=== PATIENT | female | born 1990 | race Caucasian/White ===

== ENCOUNTER → 2020-09-08 10:13 | Outpatient (BNVA) | payer OTHER, MEDICAID, SELFPAY | PROVIDERS: Visit Provider Internal Medicine | DX: M06.9 Rheumatoid arthritis, unspecified (principal); Z79.899 Other long term (current) drug therapy; Z11.1 Encounter for screening for respiratory tuberculosis; Z11.59 Encounter for screening for other viral diseases | CPT/HCPCS: 36415; 99204 ==

== ENCOUNTER 2020-09-08 11:03 | Outpatient (CLI) | payer OTHER, MEDICAID, SELFPAY ==
--- NOTE | 2020-09-08 11:12 | XR_ITS ---
WS: [id number] Left hand, 2 views, 09/08/2020 Clinical Data: Z79.899 - Other longterm (current) drug therapy Comparison: None. Findings: No fractures or dislocations are seen. The soft tissues are unremarkable. The joint spaces are normal No periarticular demineralization or calcifications are seen. There is osteoarthritis between the art iculation of the distal radius and ulna with the proximal role of carpal bones. XR/XR hand LT 2V [id number] Impression: 1. Negative left hand. 2. Osteoarthritic narrowing of the radiocarpal articulation with the proximal r ow of carpal bones.
--- NOTE | 2020-09-08 11:12 | XR_ITS ---
WS: [id number] Right hand, 2 views, 09/08/2020 Clinical Data: Z79.899 - Other correction (current) drug therapy Comparison: None. Findings: No fractures or dislocations are seen. The soft tissues are unremarkable. The joint space s are normal No periarticular demineralization or calcifications are seen. There is osteoarthritic change between the articulation of the distal radius and ulna articulating with the proximal row of carpal bones. XR/XR hand RT 2V [id number] Impression: 1. Negative right hand. 2. Osteoarthritis between the radius and ulna as they articulate with the proxi mal row of carpal bones.
== END 2020-09-08 11:04 | disposition home or self-care (01) ==
LOC: RADWPI 11:11
PROVIDERS: Visit Provider Internal Medicine
DX: Z79.899 Other long term (current) drug therapy (principal); M19.041 Primary osteoarthritis, right hand
CPT/HCPCS: 73120; 80053; 85025; 86431; 86480; 86704; 86803; 87340

== ENCOUNTER 2020-10-14 08:53 | Outpatient (CLI) | payer OTHER, MEDICAID, SELFPAY ==
[2020-10-14] MEDS: diphenhydrAMINE 25 mg Capsule PO (09:23)
[2020-10-14] MEDS: acetaminophen 325 mg Tablet 650 MG PO (09:24)
[2020-10-14] MEDS: rituximab 1,000 MG in sodium chloride 0.9% 250 ML, primary tubing onc 1 EACH 70 MG IV (09:39)
[2020-10-14 09:55] VITALS: BP 124/83; PULSE 80; RESP 16; TEMP 36.5; O2SAT 98
[2020-10-14 09:56] VITALS: BMI 28.6
--- NOTE | 2020-10-14 10:56 | PC.NURSE ---
Infusion started at 0939. Increasing rate every 30 min. Pt resting with eyes closed.
[2020-10-14 14:47] VITALS: BP 125/76; PULSE 93; RESP 16; O2SAT 98
== END 2020-10-14 08:54 | disposition home or self-care (01) ==
LOC: RHEOACUTE 08:54
PROVIDERS: Visit Provider Internal Medicine
DX: M06.09 Rheumatoid arthritis without rheumatoid factor, multiple sites (principal)
CPT/HCPCS: 96365; 96366; 96375; J2930; J7050; J9312

== ENCOUNTER 2020-10-28 09:10 | Outpatient (CLI) | payer OTHER, MEDICAID, SELFPAY ==
[2020-10-28] MEDS: acetaminophen 325 mg Tablet 650 MG PO (10:25)
[2020-10-28] MEDS: diphenhydrAMINE 25 mg Capsule PO (10:25)
[2020-10-28] MEDS: rituximab 1,000 MG in sodium chloride 0.9% 250 ML, primary tubing onc 1 EACH 70 MG IV (10:32)
--- NOTE | 2020-12-07 08:47 | PC.NURSE ---
Due to an administrative issue we are doing a late entry for clarity of the medical record. The infusion case was routine and the approximate stop time was 1532 based upon the start time of 1032.
== END 2020-10-28 09:11 | disposition home or self-care (01) ==
LOC: ONCMED 09:12
PROVIDERS: Visit Provider Internal Medicine Medical Oncology
DX: M06.9 Rheumatoid arthritis, unspecified (principal)
CPT/HCPCS: 96365; 96366; 96375; J2930; J7050; J9312

== ENCOUNTER → 2021-01-24 14:31 | Outpatient (BNVA) | payer OTHER, MEDICAID, SELFPAY | PROVIDERS: Visit Provider Internal Medicine | DX: M06.9 Rheumatoid arthritis, unspecified (principal); M79.89 Other specified soft tissue disorders; Z79.899 Other long term (current) drug therapy; R76.8 Other specified abnormal immunological findings in serum | CPT/HCPCS: 80053; 84443; 85025; 99214 ==

== ENCOUNTER 2021-02-17 07:57 | Outpatient (CLI) | payer OTHER, MEDICAID, SELFPAY ==
[2021-02-17 08:30] VITALS: BP 122/71; PULSE 97; RESP 16; TEMP 36.7; O2SAT 99
[2021-02-17] MEDS: acetaminophen 325 mg Tablet 650 MG PO (08:53)
[2021-02-17] MEDS: sodium chloride 0.9% 250 ML 75 ML IV (08:55)
[2021-02-17] MEDS: diphenhydrAMINE 50 mg/mL SDV 1mL 25 MG IVP (08:56)
[2021-02-17 09:03] LABS: Basophils # 0.1 10^3/uL (0.0-0.1); Basophils % 1.2 %; Eosinophils # 0.3 10^3/uL (0.0-0.8); Eosinophils % 4.3 %; Hematocrit 38.6 % (37.0-47.0); Hemoglobin 12.4 g/dL (11.5-15.3); Lymphocytes # 1.1 10^3/uL (0.8-4.8); Lymphocytes % 15.4 %; Mean Corpuscular HGB Conc 32.1 g/dL (30.0-36.0); Mean Corpuscular Hemoglobin 27.3 pg (28.0-34.0); Mean Corpuscular Volume 84.8 fL (81-99); Mean Platelet Volume 11.5 fL (7.4-10.4); Monocytes # 0.3 10^3/uL (0.2-0.9); Monocytes % 4.5 %; Neutrophils # 5.16 10^3/uL (1.8-7.7); Neutrophils % 74.3 %; Nucleated Red Blood Cells % 0 %; Platelet Count 324 10^3/cmm (130-400); Red Blood Count 4.55 10^6/uL (4.1-5.3); Red Cell Distribution Width 14.5 % (12.1-15.1); White Blood Count 6.9 10^3/uL (4.0-10.0)
[2021-02-17] MEDS: rituximab 1,000 MG in sodium chloride 0.9% 250 ML, primary tubing onc 1 EACH 25 MG IV (09:07)
[2021-02-17 09:15] LABS: Alanine Aminotransferase 13 U/L (0-33); Albumin Level 4.3 g/dL (3.5-5.2); Alkaline Phosphatase 80 IU/L (35-105); Anion Gap 12.6 (5-19); Aspartate Amino Transferase 19 U/L (0-32); Blood Urea Nitrogen 10 mg/dL (6-20); C Reactive Protein 5.9 mg/L (0.0-4.9); Calcium 8.6 mg/dL (8.5-10.5); Carbon Dioxide 24 mmol/L (22-29); Chloride 103 mmol/L (98-107); Globulin 3.3 g/dL (1.3-4.6); Glomerular Filtration Rate 115.9 mL/min (90-130); Glucose 114 mg/dL (65-115); Osmolality Calculated 282 mOsm/kg (285-295); Potassium 3.6 mmol/L (3.5-5.1); Sodium 136 mmol/L (136-145); Total Bilirubin 0.4 mg/dL (0.15-1.2); Total Protein 7.6 g/dL (6.6-8.7)
[2021-02-17 09:38] VITALS: BP 106/70; PULSE 57; RESP 16; TEMP 36.5; O2SAT 99
[2021-02-17 10:08] VITALS: BP 106/61; PULSE 67; RESP 16; TEMP 36.4; O2SAT 99
[2021-02-17 10:38] VITALS: BP 102/68; PULSE 60; RESP 16; TEMP 36.5; O2SAT 99
[2021-02-17] MEDS: sodium chloride 0.9% 250 ML 50 ML IV (11:59)
[2021-02-17 13:30] VITALS: BP 122/80; PULSE 82; RESP 16; TEMP 36.8; O2SAT 99
== END 2021-02-17 07:58 | disposition home or self-care (01) ==
PROVIDERS: Visit Provider Internal Medicine
DX: M06.9 Rheumatoid arthritis, unspecified (principal)
CPT/HCPCS: 80053; 85025; 86140; 96365; 96366; 96375; J1200; J2930; J7050; J9312

== ENCOUNTER 2021-03-03 06:18 | Outpatient (CLI) | payer OTHER, MEDICAID, SELFPAY ==
[2021-03-03 08:05] VITALS: BP 118/74; PULSE 67; RESP 18; TEMP 36.1; O2SAT 99
[2021-03-03] MEDS: acetaminophen 325 mg Tablet 650 MG PO (08:31)
[2021-03-03] MEDS: sodium chloride 0.9% 250 ML 75 ML IV (08:32)
[2021-03-03] MEDS: diphenhydrAMINE 50 mg/mL SDV 1mL 25 MG IVP (08:35)
[2021-03-03] MEDS: rituximab 1,000 MG in sodium chloride 0.9% 250 ML, primary tubing onc 1 EACH 35 MG IV (08:38)
[2021-03-03 11:34] VITALS: BP 118/79; PULSE 72; RESP 18; TEMP 36.5; O2SAT 98
== END 2021-03-03 06:19 | disposition home or self-care (01) ==
LOC: ONCMED 06:21
PROVIDERS: Visit Provider Internal Medicine
DX: M06.9 Rheumatoid arthritis, unspecified (principal)
CPT/HCPCS: 96365; 96366; 96375; J1200; J2930; J7050; J9312

== ENCOUNTER → 2021-06-17 09:00 | Outpatient (BNVA) | payer OTHER, MEDICAID, SELFPAY | PROVIDERS: Visit Provider Internal Medicine | DX: M06.9 Rheumatoid arthritis, unspecified (principal); M79.89 Other specified soft tissue disorders; Z79.899 Other long term (current) drug therapy; R76.8 Other specified abnormal immunological findings in serum; Z71.89 Other specified counseling | CPT/HCPCS: 99214 ==

== ENCOUNTER 2021-07-06 10:08 | Outpatient (CLI) | payer OTHER, MEDICAID, SELFPAY ==
[2021-07-06 10:23] VITALS: BP 124/65; PULSE 81; RESP 18; TEMP 36.7; O2SAT 97
[2021-07-06] MEDS: sodium chloride 0.9% 250 ML 75 ML IV (11:06)
[2021-07-06] MEDS: acetaminophen 325 mg Tablet 650 MG PO (11:07)
[2021-07-06] MEDS: diphenhydrAMINE 50 mg/mL SDV 1mL 25 MG IV (11:08)
[2021-07-06] MEDS: rituximab 1,000 MG in sodium chloride 0.9% 250 ML, primary tubing onc 1 EACH 90 MG IV (11:16)
[2021-07-06 11:17] LABS: Basophils # 0.1 10^3/uL (0.0-0.1); Basophils % 0.8 %; Eosinophils # 0.1 10^3/uL (0.0-0.8); Eosinophils % 2.4 %; Hematocrit 40.4 % (37.0-47.0); Hemoglobin 13.1 g/dL (11.5-15.3); Lymphocytes % 16.8 %; Mean Corpuscular HGB Conc 32.4 g/dL (30.0-36.0); Mean Corpuscular Hemoglobin 27.5 pg (28.0-34.0); Mean Corpuscular Volume 84.7 fl (81-99); Monocytes # 0.3 10^3/uL (0.2-0.9); Monocytes % 5.4 %; Neutrophils # 4.39 10^3/uL (1.8-7.7); Neutrophils % 74.3 %; Nucleated Red Blood Cells % 0 %; Platelet Count 310 10^3/cmm (130-400); Red Blood Count 4.77 10^6/uL (4.1-5.3); Red Cell Distribution Width 14.6 % (12.1-15.1); White Blood Count 5.9 10^3/uL (4.0-10.0)
[2021-07-06 11:46] VITALS: BP 98/67; PULSE 58; RESP 18; TEMP 36.2; O2SAT 98
[2021-07-06 11:48] LABS: Alanine Aminotransferase 12 U/L (0-33); Albumin Level 4.3 g/dL (3.5-5.2); Alkaline Phosphatase 70 IU/L (35-105); Anion Gap 13.9 (5-19); Aspartate Amino Transferase 17 U/L (0-32); Blood Urea Nitrogen 13 mg/dL (6-20); C Reactive Protein 5.5 mg/L (0.0-4.9); Calcium 8.9 mg/dL (8.5-10.5); Carbon Dioxide 23 mmol/L (22-29); Chloride 101 mmol/L (98-107); Globulin 3.3 g/dL (1.3-4.6); Glomerular Filtration Rate 142.1 mL/min (90-130); Glucose 102 mg/dL (65-115); Osmolality Calculated 278 mOsm/kg (285-295); Potassium 3.9 mmol/L (3.5-5.1); Sodium 134 mmol/L (136-145); Total Bilirubin 0.3 mg/dL (0.15-1.2); Total Protein 7.6 g/dL (6.6-8.7)
[2021-07-06 12:13] VITALS: BP 101/67; PULSE 59; RESP 18; TEMP 36.3; O2SAT 99
[2021-07-06 12:34] VITALS: BP 110/74; PULSE 60; RESP 18; TEMP 36.1; O2SAT 99
[2021-07-06 13:13] VITALS: BP 109/71; PULSE 75; RESP 18; TEMP 36.1; O2SAT 99
== END 2021-07-06 10:09 | disposition home or self-care (01) ==
LOC: ONCMED 10:11
PROVIDERS: Referring Provider Internal Medicine; Visit Provider Internal Medicine
DX: M06.9 Rheumatoid arthritis, unspecified (principal)
CPT/HCPCS: 80053; 85025; 86140; 96365; 96366; 96375; J1200; J2930; J7050; J9312

== ENCOUNTER 2021-09-22 11:02 | Outpatient (CLI) | payer OTHER, MEDICAID, SELFPAY ==
--- NOTE | 2021-09-22 11:07 | XR_ITS ---
WS: [id number] XR elbow RT min 3V* [id number] REASON FOR EXAM: M06.9 - Rheumatoid arthritis, unspecified FINDINGS: No fracture or dislocation. No focal bone lesion. Significant narrowing of the radiohumeral and ulnohumeral joint spaces of the right elbow. Marginal o steophytes. Significant deformity of the radial head compatible with old healed impaction fracture. Possible loose body in the anterior elbow joint. XR/XR elbow RT min 3V* [id number] IMPRESSION: Posttraumatic osteoarthritis of the right elbow.
--- NOTE | 2021-09-22 11:07 | XR_ITS ---
WS: [id number] LEFT ELBOW: 3 VIEW(S) TECHNIQUE: AP, oblique and lateral. HISTORY: M06.9 - Rheumatoid arthritis, unspecified COMPARISON: None available. No acute fractures or dislocation. Diffuse joint space narrowing with small osteophytes. Circumferential osteophytes around the radial h ead. No fracture or dislocation. No erosions. There is a very small joint effusion anteriorly. XR/XR elbow LT min 3V* [id number] IMPRESSION: 1. No erosions or subluxation. 2. Narrowing of the medial and lateral joint compartments without significant osteophytosis. This can be seen with rheumatoid arthritis. 3. Very small anterior joint effusion. 4. Osteophytic ridging around the radial head.
--- NOTE | 2021-09-22 11:07 | XR_ITS ---
WS: [id number] LATERAL CERVICAL SPINE: 3 view. Lateral radiographs are performed in upright neutral, flexion and extension to the patient's toleranc e. HISTORY: M06.9 - Rheumatoid arthritis, unspecified COMPARISON: None available. Reversal of the normal cervical lordosis centered at C5. The disc spaces are preserved. No fractures. Normal interspinous distance. No prevertebral soft tissue swelling or edema. Flexion and extension n o instability. XR/XR cervical spine fl/ex [id number] IMPRESSION: 1. Reversal of normal cervical lordosis centered at C5. 2. No cervical spine instability.
[2021-09-22 11:37] LABS: Basophils # 0.1 10^3/uL (0.0-0.1); Basophils % 1.2 %; Eosinophils # 0.1 10^3/uL (0.0-0.8); Eosinophils % 1.6 %; Hematocrit 39.5 % (37.0-47.0); Hemoglobin 12.7 g/dL (11.5-15.3); Lymphocytes # 1.5 10^3/uL (0.8-4.8); Lymphocytes % 20.1 %; Mean Corpuscular HGB Conc 32.2 g/dL (30.0-36.0); Mean Corpuscular Hemoglobin 27.7 pg (28.0-34.0); Mean Corpuscular Volume 86.2 fl (81-99); Mean Platelet Volume 11.4 fL (7.4-10.4); Monocytes # 0.8 10^3/uL (0.2-0.9); Monocytes % 11.2 %; Neutrophils # 4.92 10^3/uL (1.8-7.7); Neutrophils % 65.6 %; Nucleated Red Blood Cells % 0 %; Platelet Count 316 10^3/cmm (130-400); Red Blood Count 4.58 10^6/uL (4.1-5.3); White Blood Count 7.5 10^3/uL (4.0-10.0)
[2021-09-22 12:15] LABS: Alanine Aminotransferase 12 U/L (0-33); Albumin Level 4.5 g/dL (3.5-5.2); Alkaline Phosphatase 69 IU/L (35-105); Anion Gap 18.3 (5-19); Aspartate Amino Transferase 14 U/L (0-32); Blood Urea Nitrogen 12 mg/dL (6-20); Calcium 8.7 mg/dL (8.5-10.5); Carbon Dioxide 21 mmol/L (22-29); Chloride 103 mmol/L (98-107); Globulin 2.9 g/dL (1.3-4.6); Glomerular Filtration Rate 115.1 mL/min (90-130); Glucose 95 mg/dL (65-115); Immunoglobulin IGA 247 mg/dL (70-400); Immunoglobulin IGG 1434 mg/dL (700-1600); Immunoglobulin IGM 78 mg/dL (40-230); Osmolality Calculated 286 mOsm/kg (285-295); Potassium 4.3 mmol/L (3.5-5.1); Sodium 138 mmol/L (136-145); Total Bilirubin 0.3 mg/dL (0.15-1.2); Total Protein 7.4 g/dL (6.6-8.7)
[2021-09-22 12:28] LABS: Erythrocyte Sedimentation Rate 18 mm/hr (0-15)
== END 2021-09-22 11:03 | disposition home or self-care (01) ==
LOC: LAB 11:04
PROVIDERS: Visit Provider Internal Medicine
DX: M06.9 Rheumatoid arthritis, unspecified (principal); M79.89 Other specified soft tissue disorders; R76.8 Other specified abnormal immunological findings in serum; Z79.899 Other long term (current) drug therapy; M25.422 Effusion, left elbow; M19.021 Primary osteoarthritis, right elbow
CPT/HCPCS: 36415; 72040; 73080; 80053; 82784; 85025; 85651; 86140

== ENCOUNTER 2021-10-26 10:06 | Outpatient (CLI) | payer OTHER, MEDICAID, SELFPAY ==
[2021-10-26 10:20] VITALS: BP 123/79; PULSE 82; RESP 16; TEMP 36.8; O2SAT 98
[2021-10-26] MEDS: sodium chloride 0.9% 250 ML 75 ML IV (10:50)
[2021-10-26] MEDS: acetaminophen 325 mg Tablet 650 MG PO (10:51)
[2021-10-26] MEDS: diphenhydrAMINE 50 mg/mL SDV 1mL 25 MG IV (10:52)
[2021-10-26] MEDS: rituximab 1,000 MG in sodium chloride 0.9% 250 ML, primary tubing onc 1 EACH 90 MG IV (11:07)
[2021-10-26 11:10] LABS: Basophils % 0.7 %; Eosinophils # 0.1 10^3/uL (0.0-0.8); Eosinophils % 2.3 %; Hematocrit 38.3 % (37.0-47.0); Hemoglobin 12.3 g/dL (11.5-15.3); Lymphocytes # 0.8 10^3/uL (0.8-4.8); Lymphocytes % 18.8 %; Mean Corpuscular HGB Conc 32.1 g/dL (30.0-36.0); Mean Corpuscular Hemoglobin 27.8 pg (28.0-34.0); Mean Corpuscular Volume 86.5 fl (81-99); Mean Platelet Volume 11.4 fL (7.4-10.4); Monocytes # 0.6 10^3/uL (0.2-0.9); Monocytes % 13.4 %; Neutrophils # 2.75 10^3/uL (1.8-7.7); Neutrophils % 64.6 %; Nucleated Red Blood Cells % 0 %; Platelet Count 320 10^3/cmm (130-400); Red Blood Count 4.43 10^6/uL (4.1-5.3); Red Cell Distribution Width 13.5 % (12.1-15.1); White Blood Count 4.3 10^3/uL (4.0-10.0)
[2021-10-26 11:33] VITALS: BP 97/63; PULSE 61; RESP 16; TEMP 36.9; O2SAT 99
[2021-10-26 11:34] LABS: Alanine Aminotransferase 14 U/L (0-33); Alkaline Phosphatase 77 IU/L (35-105); Aspartate Amino Transferase 17 U/L (0-32); Blood Urea Nitrogen 10 mg/dL (6-20); C Reactive Protein 11.5 mg/L (0.0-4.9); Calcium 8.4 mg/dL (8.5-10.5); Carbon Dioxide 21 mmol/L (22-29); Chloride 103 mmol/L (98-107); Globulin 2.7 g/dL (1.3-4.6); Glomerular Filtration Rate 183.8 mL/min (90-130); Glucose 86 mg/dL (65-115); Osmolality Calculated 278 mOsm/kg (285-295); Sodium 135 mmol/L (136-145); Total Bilirubin 0.3 mg/dL (0.15-1.2); Total Protein 6.7 g/dL (6.6-8.7)
[2021-10-26 12:05] VITALS: BP 107/70; PULSE 68; RESP 16; TEMP 36.8; O2SAT 100
[2021-10-26 13:04] VITALS: BP 111/70; PULSE 67; RESP 16; TEMP 36.9; O2SAT 100
== END 2021-10-26 10:07 | disposition home or self-care (01) ==
LOC: ONCMED 10:14
PROVIDERS: Referring Provider Internal Medicine; Visit Provider Internal Medicine
DX: M06.9 Rheumatoid arthritis, unspecified (principal)
CPT/HCPCS: 80053; 85025; 86140; 96365; 96366; 96375; J1200; J2930; J7050; J9312

== ENCOUNTER 2022-02-15 10:03 | Outpatient (CLI) | payer OTHER, MEDICAID, SELFPAY ==
[2022-02-15 10:12] VITALS: BP 115/85; PULSE 76; RESP 18; TEMP 36.8; O2SAT 98
[2022-02-15] MEDS: acetaminophen 325 mg Tablet 650 MG PO (10:39)
[2022-02-15] MEDS: sodium chloride 0.9% 250 ML 50 ML IV (10:42)
[2022-02-15] MEDS: diphenhydrAMINE 50 mg/mL SDV 1mL 25 MG IVP (10:43)
[2022-02-15 10:45] LABS: Basophils # 0.1 10^3/uL (0.0-0.1); Eosinophils # 0.2 10^3/uL (0.0-0.8); Eosinophils % 3.8 %; Hematocrit 38.7 % (37.0-47.0); Hemoglobin 12.5 g/dL (11.5-15.3); Lymphocytes # 1.1 10^3/uL (0.8-4.8); Lymphocytes % 17.9 %; Mean Corpuscular HGB Conc 32.3 g/dL (30.0-36.0); Mean Corpuscular Hemoglobin 27.4 pg (28.0-34.0); Mean Corpuscular Volume 84.9 fl (81-99); Mean Platelet Volume 11.5 fL (7.4-10.4); Monocytes # 0.4 10^3/uL (0.2-0.9); Monocytes % 7.4 %; Neutrophils # 4.16 10^3/uL (1.8-7.7); Neutrophils % 69.6 %; Nucleated Red Blood Cells % 0 %; Platelet Count 300 10^3/cmm (130-400); Red Blood Count 4.56 10^6/uL (4.1-5.3); Red Cell Distribution Width 13.9 % (12.1-15.1)
[2022-02-15] MEDS: rituximab 1,000 MG in sodium chloride 0.9% 250 ML, primary tubing onc 1 EACH 35 MG IV (10:55)
[2022-02-15 11:06] LABS: Alanine Aminotransferase 14 U/L (0-33); Albumin Level 4.1 g/dL (3.5-5.2); Alkaline Phosphatase 72 IU/L (35-105); Anion Gap 12.9 (5-19); Aspartate Amino Transferase 17 U/L (0-32); Blood Urea Nitrogen 6 mg/dL (6-20); C Reactive Protein 6.7 mg/L (0.0-4.9); Calcium 8.8 mg/dL (8.5-10.5); Carbon Dioxide 22 mmol/L (22-29); Chloride 103 mmol/L (98-107); Globulin 3.3 g/dL (1.3-4.6); Glomerular Filtration Rate 142.1 mL/min (90-130); Glucose 92 mg/dL (65-115); Osmolality Calculated 275 mOsm/kg (285-295); Potassium 3.9 mmol/L (3.5-5.1); Sodium 134 mmol/L (136-145); Total Bilirubin 0.3 mg/dL (0.15-1.2); Total Protein 7.4 g/dL (6.6-8.7)
[2022-02-15 11:21] VITALS: BP 106/73; PULSE 60; RESP 18; TEMP 36.4; O2SAT 98
[2022-02-15 12:24] VITALS: BP 100/69; PULSE 73; RESP 18; TEMP 36.8; O2SAT 98
[2022-02-15 14:24] VITALS: BP 116/79; PULSE 86; RESP 18; TEMP 36.8; O2SAT 98
== END 2022-02-15 10:04 | disposition home or self-care (01) ==
PROVIDERS: Referring Provider Internal Medicine; Visit Provider Internal Medicine
DX: M06.9 Rheumatoid arthritis, unspecified (principal); Z79.899 Other long term (current) drug therapy
CPT/HCPCS: 80053; 85025; 86140; 96365; 96366; 96375; J1200; J2930; J7050; J9312

== ENCOUNTER → 2022-06-28 10:04 | Outpatient (BNVA) | payer OTHER, MEDICAID, SELFPAY | PROVIDERS: Visit Provider Internal Medicine | DX: R76.8 Other specified abnormal immunological findings in serum (principal); M25.529 Pain in unspecified elbow; M79.89 Other specified soft tissue disorders; M06.9 Rheumatoid arthritis, unspecified; Z79.899 Other long term (current) drug therapy | CPT/HCPCS: 80053; 82784; 84439; 84443; 85025; 85651; 86140 ==

== ENCOUNTER 2022-07-27 08:01 | Outpatient (CLI) | payer OTHER, MEDICAID, SELFPAY ==
[2022-07-27 08:10] VITALS: BP 118/70; PULSE 93; RESP 18; TEMP 36.1; O2SAT 97
[2022-07-27 08:37] LABS: Eosinophils # 0.3 10^3/uL (0.0-0.8); Eosinophils % 7.2 %; Hematocrit 37.9 % (37.0-47.0); Hemoglobin 11.9 g/dL (11.5-15.3); Lymphocytes # 1.1 10^3/uL (0.8-4.8); Lymphocytes % 28.1 %; Mean Corpuscular HGB Conc 31.4 g/dL (30.0-36.0); Mean Corpuscular Hemoglobin 26.1 pg (28.0-34.0); Mean Corpuscular Volume 83.1 fl (81-99); Mean Platelet Volume 11.2 fL (7.4-10.4); Monocytes # 0.2 10^3/uL (0.2-0.9); Monocytes % 5.7 %; Neutrophils # 2.34 10^3/uL (1.8-7.7); Neutrophils % 57.8 %; Nucleated Red Blood Cells % 0 %; Platelet Count 324 10^3/cmm (130-400); Red Blood Count 4.56 10^6/uL (4.1-5.3); Red Cell Distribution Width 15.1 % (12.1-15.1); White Blood Count 4.1 10^3/uL (4.0-10.0)
[2022-07-27] MEDS: sodium chloride 0.9% 250 ML 50 ML IV (08:47)
[2022-07-27] MEDS: acetaminophen 325 mg Tablet 650 MG PO (08:48)
[2022-07-27] MEDS: diphenhydrAMINE 50 mg/mL SDV 1mL 25 MG IVP (08:49)
[2022-07-27 09:01] LABS: Alanine Aminotransferase 22 U/L (0-33); Albumin Level 4.2 g/dL (3.5-5.2); Alkaline Phosphatase 76 U/L (35-105); Anion Gap 14.6 (5-19); Aspartate Amino Transferase 24 U/L (0-32); Blood Urea Nitrogen 12 mg/dL (6-20); C Reactive Protein 4.1 mg/L (0.0-4.9); Carbon Dioxide 23 mmol/L (22-29); Chloride 103 mmol/L (98-107); Globulin 3.1 g/dL (1.3-4.6); Glomerular Filtration Rate 114.4 mL/min (90-130); Glucose 116 mg/dL (65-115); Osmolality Calculated 285 mOsm/kg (285-295); Potassium 3.6 mmol/L (3.5-5.1); Sodium 137 mmol/L (136-145); Total Bilirubin 0.5 mg/dL (0.15-1.2); Total Protein 7.3 g/dL (6.6-8.7)
[2022-07-27] MEDS: rituximab 1,000 MG in sodium chloride 0.9% 250 ML, primary tubing onc 1 EACH 37.5 MG IV (09:05)
[2022-07-27 09:29] VITALS: BP 138/69; PULSE 57; RESP 16; TEMP 36.4; O2SAT 95
[2022-07-27 10:05] VITALS: BP 99/63; PULSE 61; RESP 18; TEMP 36.1; O2SAT 98
[2022-07-27 10:35] VITALS: BP 103/61; PULSE 75; RESP 18; TEMP 36.1; O2SAT 98
[2022-07-27 12:21] VITALS: BP 114/68; PULSE 87; RESP 18; TEMP 36.2; O2SAT 100
== END 2022-07-27 08:02 | disposition home or self-care (01) ==
PROVIDERS: Visit Provider Internal Medicine
DX: M06.9 Rheumatoid arthritis, unspecified (principal); Z79.899 Other long term (current) drug therapy
CPT/HCPCS: 80053; 85025; 86140; 96365; 96366; 96375; J1200; J2930; J7050; J9312

== ENCOUNTER 2022-12-06 10:30 | Oncology outpatient (recurring) (ONCR) | payer OTHER, MEDICAID, SELFPAY ==
[2022-12-06 10:42] VITALS: BP 115/84; PULSE 96; RESP 18; TEMP 36.8; O2SAT 97
[2022-12-06 11:04] LABS: Basophils # 0.1 10^3/uL (0.0-0.1); Basophils % 1.2 %; Eosinophils # 0.4 10^3/uL (0.0-0.8); Eosinophils % 7.1 %; Lymphocytes # 1.2 10^3/uL (0.8-4.8); Lymphocytes % 19.8 %; Mean Corpuscular HGB Conc 31.6 g/dL (30.0-36.0); Mean Corpuscular Hemoglobin 26.1 pg (28.0-34.0); Mean Corpuscular Volume 82.8 fl (81-99); Monocytes # 0.3 10^3/uL (0.2-0.9); Monocytes % 5.5 %; Neutrophils # 3.85 10^3/uL (1.8-7.7); Neutrophils % 66.2 %; Nucleated Red Blood Cells % 0 %; Platelet Count 353 10^3/cmm (130-400); Red Blood Count 4.59 10^6/uL (4.1-5.3); Red Cell Distribution Width 15.6 % (12.1-15.1); White Blood Count 5.8 10^3/uL (4.0-10.0)
[2022-12-06] MEDS: sodium chloride 0.9% 250 ML 50 ML IV (11:18)
[2022-12-06] MEDS: acetaminophen 325 mg Tablet 650 MG PO (11:19)
[2022-12-06] MEDS: diphenhydrAMINE 50 mg/mL SDV 1mL 25 MG IVP (11:20)
[2022-12-06 11:27] LABS: Alanine Aminotransferase 19 U/L (0-33); Albumin Level 4.4 g/dL (3.5-5.2); Alkaline Phosphatase 82 U/L (35-105); Anion Gap 15.7 (5-19); Aspartate Amino Transferase 24 U/L (0-32); Blood Urea Nitrogen 14 mg/dL (6-20); C Reactive Protein 7.5 mg/L (0.0-4.9); Calcium 9.1 mg/dL (8.5-10.5); Carbon Dioxide 22 mmol/L (22-29); Chloride 104 mmol/L (98-107); Globulin 2.8 g/dL (1.3-4.6); Glomerular Filtration Rate 114.4 mL/min (90-130); Glucose 112 mg/dL (65-115); Osmolality Calculated 287 mOsm/kg (285-295); Potassium 3.7 mmol/L (3.5-5.1); Sodium 138 mmol/L (136-145); Total Bilirubin 0.4 mg/dL (0.15-1.2); Total Protein 7.2 g/dL (6.6-8.7)
[2022-12-06] MEDS: rituximab 1,000 MG in sodium chloride 0.9% 250 ML, primary tubing onc 1 EACH 37.5 MG IV (11:32)
[2022-12-06 12:03] VITALS: BP 112/79; PULSE 65; RESP 16; TEMP 36.4; O2SAT 91
[2022-12-06 12:35] VITALS: BP 117/76; PULSE 72; RESP 16; TEMP 36.4; O2SAT 95
[2022-12-06 13:24] VITALS: BP 103/69; PULSE 68; RESP 16; TEMP 36.3; O2SAT 95
[2022-12-06 14:53] VITALS: BP 105/69; PULSE 83; RESP 16; TEMP 36.6; O2SAT 98
== END 2023-01-05 23:59 | disposition home or self-care (01) ==
PROVIDERS: PCP Nurse Practitioner Family; Visit Provider Internal Medicine
DX: M06.9 Rheumatoid arthritis, unspecified (principal); Z51.12 Encounter for antineoplastic immunotherapy; Z79.899 Other long term (current) drug therapy
CPT/HCPCS: 80053; 85025; 86140; 96375; 96413; 96415; J1200; J2930; J7050; J9312

== ENCOUNTER → 2023-03-08 08:42 | Outpatient (BNVA) | payer OTHER, MEDICAID, SELFPAY | PROVIDERS: PCP Nurse Practitioner Family; Referring Provider Internal Medicine; Visit Provider Internal Medicine | DX: E03.8 Other specified hypothyroidism (principal); R63.5 Abnormal weight gain | CPT/HCPCS: 36415; 84439; 84443; 86376; 86800 ==

== ENCOUNTER → 2023-03-15 09:56 | Outpatient (BNVA) | payer OTHER, MEDICAID, SELFPAY | PROVIDERS: PCP Nurse Practitioner Family; Referring Provider Internal Medicine; Visit Provider Student in an Organized Health Care Education/Training Program | DX: M06.842 Other specified rheumatoid arthritis, left hand (principal); R22.32 Localized swelling, mass and lump, left upper limb | CPT/HCPCS: 73130 ==

== ENCOUNTER 2023-03-29 07:47 | Outpatient (CLI) | payer OTHER, MEDICAID, SELFPAY ==
--- NOTE | 2023-03-29 08:00 | MR_ITS ---
WS: [id number] MRI LEFT HAND without CONTRAST. COMPARISON: Radiograph 03/15/2023 Multiplanar, multisequence imaging is performed without contrast. History: Rheumatoid arthritis. LEFT index finger mass. Multilobulated soft tissue mass associated with the flexor tendon sheath of the second finger. Mass i s of mildly increased T2 signal and decreased signal in the T1 sequences. This mass extends over evelia th of 2.4 cm and transversely by 2.0 cm. Mass is centered near the second PIP joint but extends along the dorsal surface of the finger distally. This is not a simple cyst. There are several loculated co mponents. Long segment contact on the flexor tendon. No bone erosion is identified. No signal abnormality within the remaining fingers are soft tissues. MR/MR hand LT wo con* [id number] IMPRESSION: 1. Lobulated soft tissue mass closely associated with the flexor tendon sheath of the second finger. Mass measures 2.4 x 2.0 cm. This is not a simple cyst. H igh likelihood this nodule is associated with rheumatoid arthritis. Rheumatoid nodule with pannus or complex synovitis. Flexor tenosynovitis can often be seen with rheumatoid arthritis. 2. No fracture and no erosions are identified.
== END 2023-03-29 07:48 | disposition home or self-care (01) ==
PROVIDERS: PCP Nurse Practitioner Family; Visit Provider Student in an Organized Health Care Education/Training Program
DX: M06.342 Rheumatoid nodule, left hand (principal)
CPT/HCPCS: 73218

== ENCOUNTER 2023-04-17 08:07 | Oncology outpatient (recurring) (ONCR) | payer OTHER, MEDICAID, SELFPAY ==
[2023-04-17 08:18] VITALS: BP 115/78; PULSE 71; RESP 17; TEMP 36.2; O2SAT 97
[2023-04-17] MEDS: acetaminophen 325 mg Tablet 650 MG PO (08:54)
[2023-04-17] MEDS: sodium chloride 0.9% 250 ML 75 ML IV (08:55)
[2023-04-17] MEDS: diphenhydrAMINE 50 mg/mL SDV 1mL 25 MG IVP (08:55)
[2023-04-17] MEDS: methylPREDNISolone sod succ 125 mg SDV IVP (08:56)
[2023-04-17 09:01] LABS: Basophils # 0.1 10^3/uL (0.0-0.1); Basophils % 0.9 %; Eosinophils # 0.3 10^3/uL (0.0-0.8); Eosinophils % 4.2 %; Hematocrit 33.4 % (37.0-47.0); Hemoglobin 10.5 g/dL (11.5-15.3); Lymphocytes # 1.1 10^3/uL (0.8-4.8); Lymphocytes % 16.4 %; Mean Corpuscular HGB Conc 31.4 g/dL (30.0-36.0); Mean Corpuscular Hemoglobin 25.8 pg (28.0-34.0); Mean Corpuscular Volume 82.1 fl (81-99); Mean Platelet Volume 11.4 fL (7.4-10.4); Monocytes # 0.5 10^3/uL (0.2-0.9); Neutrophils # 4.89 10^3/uL (1.8-7.7); Neutrophils % 71.1 %; Nucleated Red Blood Cells % 0 %; Platelet Count 315 10^3/cmm (130-400); Red Blood Count 4.07 10^6/uL (4.1-5.3); Red Cell Distribution Width 14.8 % (12.1-15.1); White Blood Count 6.9 10^3/uL (4.0-10.0)
[2023-04-17 09:13] VITALS: BP 110/74; PULSE 67; RESP 16; TEMP 36.6; O2SAT 97
[2023-04-17] MEDS: RITUXIMAB IV (09:13)
[2023-04-17] MEDS: SODIUM CHLORIDE 0.9% IV (09:13)
[2023-04-17 09:25] LABS: Free T4 Free Thyroxine 0.89 ng/dL (0.82-1.77); Thyroid Stimulating Hormone 7.24 uIU/mL (0.27-4.20)
[2023-04-17 09:49] VITALS: BP 104/64; PULSE 60; RESP 16; TEMP 36.5; O2SAT 97
[2023-04-17 10:22] VITALS: BP 105/64; PULSE 56; RESP 16; TEMP 36.2; O2SAT 95
[2023-04-17 10:52] VITALS: BP 109/62; PULSE 56; RESP 16; TEMP 36.4; O2SAT 98
[2023-04-17 12:55] VITALS: BP 111/71; PULSE 84; RESP 16; TEMP 37.1; O2SAT 98
== END 2023-04-17 23:59 | disposition home or self-care (01) ==
PROVIDERS: Internal Medicine; PCP Nurse Practitioner Family; Visit Provider Internal Medicine
DX: Z51.12 Encounter for antineoplastic immunotherapy (principal); M06.9 Rheumatoid arthritis, unspecified; E03.8 Other specified hypothyroidism; R63.5 Abnormal weight gain
CPT/HCPCS: 84439; 84443; 85025; 96375; 96413; 96415; J1200; J2930; J7040; J7050; J9312

== ENCOUNTER 2023-05-04 11:43 | Outpatient (CLI) | payer OTHER, MEDICAID, SELFPAY ==
[2023-05-04 13:03] LABS: Thyroid Stimulating Hormone 7.77 uIU/mL (0.27-4.20)
== END 2023-05-04 11:44 | disposition home or self-care (01) ==
LOC: LAB 11:47
PROVIDERS: PCP Nurse Practitioner Family; Visit Provider Internal Medicine
DX: E03.8 Other specified hypothyroidism (principal); R63.5 Abnormal weight gain
CPT/HCPCS: 36415; 84439; 84443

== ENCOUNTER 2023-08-08 07:57 | Oncology outpatient (recurring) (ONCR) | payer OTHER, MEDICAID, SELFPAY ==
[2023-08-08 08:43] LABS: Basophils # 0.1 10^3/uL (0.0-0.1); Basophils % 1.3 %; Eosinophils # 0.2 10^3/uL (0.0-0.8); Eosinophils % 2.9 %; Hematocrit 40.6 % (36-47); Lymphocytes % 19.3 %; Mean Corpuscular HGB Conc 31.8 g/dL (30-55); Mean Corpuscular Hemoglobin 26.1 pg (27-33); Mean Corpuscular Volume 82.2 fl (85-98); Mean Platelet Volume 11.6 fL (7.4-10.4); Monocytes # 0.5 10^3/uL (0.2-0.9); Monocytes % 8.6 %; Neutrophils # 3.54 10^3/uL (1.8-7.7); Neutrophils % 67.5 %; Nucleated Red Blood Cells % 0 %; Platelet Count 335 10^3/cmm (157-399); Red Blood Count 4.94 10^6/uL (3.85-5.65); Red Cell Distribution Width 14.8 % (12.1-15.1); White Blood Count 5.24 10^3/uL (3.29-11.43)
[2023-08-08] MEDS: sodium chloride 0.9% 250 ML 75 ML IV (08:51)
[2023-08-08] MEDS: acetaminophen 325 mg Tablet 650 MG PO (08:51)
[2023-08-08] MEDS: diphenhydrAMINE 50 mg/mL SDV 1mL 25 MG IVP (08:57)
[2023-08-08 08:58] LABS: Alanine Aminotransferase 16 U/L (0-33); Albumin Level 4.7 g/dL (3.5-5.2); Alkaline Phosphatase 74 U/L (35-105); Anion Gap 13.6 (5-19); Aspartate Amino Transferase 19 U/L (0-32); Blood Urea Nitrogen 10 mg/dL (6-20); C Reactive Protein 3.7 mg/L (0.0-4.9); Calcium 9.3 mg/dL (8.5-10.5); Carbon Dioxide 25 mmol/L (22-29); Chloride 102 mmol/L (98-107); Globulin 3.1 g/dL (1.3-4.6); Glomerular Filtration Rate 113.8 mL/min (90-130); Glucose 100 mg/dL (65-115); Osmolality Calculated 283 mOsm/kg (285-295); Potassium 3.6 mmol/L (3.5-5.1); Sodium 137 mmol/L (136-145); Total Bilirubin 0.4 mg/dL (0.15-1.2); Total Protein 7.8 g/dL (6.6-8.7)
[2023-08-08] MEDS: methylPREDNISolone sod succ 125 mg SDV IVP (08:59)
[2023-08-08 09:03] VITALS: BP 110/75; PULSE 76; RESP 18; TEMP 36.6; O2SAT 99
[2023-08-08] MEDS: rituximab 1,000 MG in sodium chloride 0.9% 500 ML 100 MG IV (09:20)
[2023-08-08 13:00] VITALS: BP 104/73; PULSE 71; RESP 18; TEMP 36.6; O2SAT 99
== END 2023-08-08 23:59 | disposition home or self-care (01) ==
PROVIDERS: PCP Nurse Practitioner Family; Visit Provider Internal Medicine
DX: M06.9 Rheumatoid arthritis, unspecified
CPT/HCPCS: 80053; 85025; 86140; 96375; 96413; 96415; J1200; J2930; J7040; J7050; J9312

== ENCOUNTER 2023-12-04 07:56 | Oncology outpatient (recurring) (ONCR) | payer OTHER, MEDICAID, SELFPAY ==
[2023-12-04] MEDS: acetaminophen 325 mg Tablet 650 MG PO (08:38)
[2023-12-04] MEDS: diphenhydrAMINE 50 mg/mL SDV 1mL 25 MG IVP (08:38)
[2023-12-04] MEDS: sodium chloride 0.9% 250 ML 75 ML IV (08:38)
[2023-12-04] MEDS: methylPREDNISolone sod succ 125 mg/2 mL INJ IVP (08:39)
[2023-12-04 08:41] LABS: Basophils # 0.1 10^3/uL (0.0-0.1); Basophils % 0.9 %; Eosinophils # 0.3 10^3/uL (0.0-0.8); Eosinophils % 3.6 %; Lymphocytes # 1.2 10^3/uL (0.8-4.8); Mean Corpuscular HGB Conc 32.3 g/dL (30-55); Mean Corpuscular Hemoglobin 26.5 pg (27-33); Mean Platelet Volume 11.9 fL (7.4-10.4); Monocytes # 0.5 10^3/uL (0.2-0.9); Neutrophils # 5.59 10^3/uL (1.8-7.7); Neutrophils % 72.2 %; Nucleated Red Blood Cells % 0 %; Platelet Count 300 10^3/cmm (157-399); Red Blood Count 4.27 10^6/uL (3.85-5.65); Red Cell Distribution Width 14.9 % (12.1-15.1); White Blood Count 7.74 10^3/uL (3.29-11.43)
[2023-12-04 09:05] VITALS: BP 109/69; PULSE 66; RESP 16; TEMP 36.3; O2SAT 99
[2023-12-04] MEDS: rituximab 1,000 MG in sodium chloride 0.9% 500 ML 60 MG IV (09:05)
[2023-12-04 09:35] VITALS: BP 111/66; PULSE 77; RESP 16; TEMP 36.4; O2SAT 99
[2023-12-04 10:05] VITALS: BP 95/64; PULSE 64; RESP 16; TEMP 36.4; O2SAT 97
[2023-12-04 10:35] VITALS: BP 103/66; PULSE 76; RESP 16; TEMP 36.5; O2SAT 96
[2023-12-04 12:47] VITALS: BP 134/76; PULSE 94; RESP 17; TEMP 36.6; O2SAT 98
== END 2023-12-04 23:59 | disposition home or self-care (01) ==
PROVIDERS: PCP Nurse Practitioner Family; Visit Provider Internal Medicine
DX: M05.79 Rheumatoid arthritis with rheumatoid factor of multiple sites without organ or systems involvement
CPT/HCPCS: 85025; 96375; 96413; 96415; J1200; J2930; J7040; J7050; J9312

== ENCOUNTER → 2023-12-13 12:30 | Outpatient (BNVA) | payer OTHER, MEDICAID, SELFPAY | PROVIDERS: PCP Nurse Practitioner Family; Visit Provider Internal Medicine Rheumatology | DX: M06.9 Rheumatoid arthritis, unspecified (principal); M25.569 Pain in unspecified knee; R76.8 Other specified abnormal immunological findings in serum; Z79.899 Other long term (current) drug therapy; M05.79 Rheumatoid arthritis with rheumatoid factor of multiple sites without organ or systems involvement; Z71.85 Encounter for immunization safety counseling | CPT/HCPCS: 73562 ==

== ENCOUNTER 2024-01-22 08:00 | Oncology outpatient (recurring) (ONCR) | payer OTHER, MEDICAID, SELFPAY ==
--- NOTE | 2024-01-22 08:36 | PC.NURSE ---
patient wants only one dose today to catch up from previous missed dose. We will start new cycle 24 weeks from now per written orders.
[2024-01-22] MEDS: sodium chloride 0.9% 250 ML 75 ML IV (08:48)
[2024-01-22] MEDS: diphenhydrAMINE 50 mg/mL SDV 1mL 25 MG IVP (08:48)
[2024-01-22] MEDS: acetaminophen 325 mg Tablet 650 MG PO (08:48)
[2024-01-22] MEDS: methylPREDNISolone sod succ 40 mg/mL INJ IVP (08:49)
[2024-01-22 09:15] VITALS: BP 114/78; PULSE 59; RESP 16; TEMP 36.3; O2SAT 99
[2024-01-22] MEDS: rituximab-abbs 1,000 MG in sodium chloride 0.9% 500 ML 60 MG IV (09:15)
[2024-01-22 09:45] VITALS: BP 103/73; PULSE 61; RESP 16; TEMP 36.2; O2SAT 99
[2024-01-22 10:15] VITALS: BP 102/64; PULSE 59; RESP 16; TEMP 36.3; O2SAT 96
[2024-01-22 10:45] VITALS: BP 109/74; PULSE 62; RESP 16; O2SAT 99
[2024-01-22 13:09] VITALS: BP 116/79; PULSE 17; RESP 18; TEMP 36.6; O2SAT 98
== END 2024-02-05 23:59 | disposition home or self-care (01) ==
PROVIDERS: PCP Nurse Practitioner Family; Visit Provider Internal Medicine Rheumatology
DX: M05.79 Rheumatoid arthritis with rheumatoid factor of multiple sites without organ or systems involvement (principal); Z79.899 Other long term (current) drug therapy
CPT/HCPCS: 96375; 96413; 96415; J1200; J2919; J7040; J7050; Q5115

== ENCOUNTER 2024-06-19 06:00 | Outpatient (CLI) | payer MEDICAID, SELFPAY | END 2024-06-19 06:01 | disposition home or self-care (01) | LOC: RAD 07-11 10:43 | PROVIDERS: PCP Nurse Practitioner Family; Visit Provider Internal Medicine Rheumatology | DX: M05.79 Rheumatoid arthritis with rheumatoid factor of multiple sites without organ or systems involvement (principal); Z79.899 Other long term (current) drug therapy | CPT/HCPCS: 36415; 80076; 82565; 85025; 85651; 86140 ==

== ENCOUNTER 2024-07-08 07:59 | Oncology outpatient (recurring) (ONCR) | payer MEDICAID, SELFPAY ==
[2024-07-08 08:25] VITALS: BP 117/82; PULSE 80; RESP 16; TEMP 36.3; O2SAT 99
[2024-07-08] MEDS: sodium chloride 0.9% 250 ML 75 ML IV (08:43)
[2024-07-08] MEDS: acetaminophen 325 mg Tablet 650 MG PO (08:43)
[2024-07-08] MEDS: methylPREDNISolone sod succ 125 mg/2 mL INJ IVP (08:45)
[2024-07-08] MEDS: diphenhydrAMINE 50 mg/mL SDV 1mL 25 MG IVP (08:52)
[2024-07-08 09:25] VITALS: BP 104/67; PULSE 70; RESP 16; TEMP 36.3; O2SAT 99
[2024-07-08] MEDS: rituximab-abbs 1,000 MG in sodium chloride 0.9% 500 ML 70 MG IV (09:25)
[2024-07-08 09:43] LABS: Basophils # 0.1 10^3/uL (0.0-0.1); Basophils % 1.4 %; Eosinophils # 0.4 10^3/uL (0.0-0.8); Eosinophils % 6.9 %; Hematocrit 37.4 % (36-47); Lymphocytes # 0.9 10^3/uL (0.8-4.8); Lymphocytes % 17.2 %; Mean Corpuscular HGB Conc 31.3 g/dL (30-55); Mean Corpuscular Hemoglobin 25.8 pg (27-33); Mean Corpuscular Volume 82.4 fl (85-98); Mean Platelet Volume 11.4 fL (7.4-10.4); Monocytes # 0.4 10^3/uL (0.2-0.9); Monocytes % 8.1 %; Neutrophils # 3.35 10^3/uL (1.8-7.7); Nucleated Red Blood Cells % 0 %; Platelet Count 332 10^3/cmm (157-399); Red Blood Count 4.54 10^6/uL (3.85-5.65); Red Cell Distribution Width 14.6 % (12.1-15.1); White Blood Count 5.07 10^3/uL (3.29-11.43)
[2024-07-08 09:58] LABS: Alanine Aminotransferase 12 U/L (0-33); Albumin Level 4.3 g/dL (3.5-5.2); Alkaline Phosphatase 78 U/L (35-105); Aspartate Amino Transferase 14 U/L (0-32); C Reactive Protein 8.3 mg/L (0.0-4.9); Creatinine Clr Calc Pharmacy 122.9579; Globulin 3.1 g/dL (1.3-4.6); Glomerular Filtration Rate 113.1 mL/min (90-130); Total Bilirubin 0.2 mg/dL (0.15-1.2); Total Protein 7.4 g/dL (6.6-8.7)
[2024-07-08 09:59] VITALS: BP 105/73; PULSE 61; RESP 16; TEMP 35.9; O2SAT 98
[2024-07-08 10:30] VITALS: BP 101/64; PULSE 78; RESP 16; TEMP 36.3; O2SAT 99
[2024-07-08 11:00] VITALS: BP 105/67; PULSE 78; RESP 16; TEMP 36; O2SAT 99
[2024-07-08 13:05] VITALS: BP 112/72; PULSE 71; RESP 16; TEMP 35.5; O2SAT 96
== END 2024-07-08 23:59 | disposition home or self-care (01) ==
PROVIDERS: PCP Nurse Practitioner Family; Visit Provider Internal Medicine Rheumatology
DX: Z79.899 Other long term (current) drug therapy; M06.9 Rheumatoid arthritis, unspecified
CPT/HCPCS: 80076; 82565; 85025; 86140; 96413; 96415; J1200; J2919; J7040; J7050; Q5115

== ENCOUNTER 2024-07-21 08:08 | Oncology outpatient (recurring) (ONCR) | payer MEDICAID, SELFPAY ==
[2024-07-21 08:30] VITALS: BP 121/79; PULSE 74; RESP 16; TEMP 36.4; O2SAT 98
[2024-07-21] MEDS: sodium chloride 0.9% 250 ML 75 ML IV (08:49)
[2024-07-21] MEDS: acetaminophen 325 mg Tablet 650 MG PO (08:49)
[2024-07-21] MEDS: diphenhydrAMINE 50 mg/mL SDV 1mL 25 MG IVP (08:49)
[2024-07-21] MEDS: methylPREDNISolone sod succ 125 mg/2 mL INJ IVP (09:01)
[2024-07-21] MEDS: rituximab-abbs 1,000 MG in sodium chloride 0.9% 500 ML 70 MG IV (10:06)
[2024-07-21 13:33] VITALS: BP 118/77; PULSE 88; RESP 18; TEMP 35.5; O2SAT 98
== END 2024-08-07 23:59 | disposition home or self-care (01) ==
LOC: ONCMED 08:08
PROVIDERS: PCP Nurse Practitioner Family; Visit Provider Internal Medicine Rheumatology
DX: M05.79 Rheumatoid arthritis with rheumatoid factor of multiple sites without organ or systems involvement (principal); Z79.899 Other long term (current) drug therapy
CPT/HCPCS: 96375; 96413; 96415; J1200; J2919; J7040; J7050; Q5115

== ENCOUNTER → 2024-12-18 13:56 | Outpatient (BNVA) | payer MEDICAID, SELFPAY | PROVIDERS: PCP Nurse Practitioner Family; Visit Provider Internal Medicine Rheumatology | DX: Z79.899 Other long term (current) drug therapy (principal); M05.79 Rheumatoid arthritis with rheumatoid factor of multiple sites without organ or systems involvement | CPT/HCPCS: 80076; 82565; 85025; 85651; 86140 ==

== ENCOUNTER 2025-01-15 08:01 | Oncology outpatient (recurring) (ONCR) | payer MEDICAID, SELFPAY ==
[2025-01-15 08:16] VITALS: BP 116/79; PULSE 70; TEMP 36.3; O2SAT 95
[2025-01-15] MEDS: sodium chloride 0.9% 250 ML 75 ML IV (08:44)
[2025-01-15] MEDS: diphenhydrAMINE 50 mg/mL SDV 1mL 25 MG IVP (08:47)
[2025-01-15] MEDS: acetaminophen 325 mg Tablet 650 MG PO (08:47)
[2025-01-15] MEDS: methylPREDNISolone sod succ 125 mg/2 mL INJ IVP (08:52)
[2025-01-15 09:25] VITALS: BP 106/74; PULSE 64; RESP 16; TEMP 36.1; O2SAT 100
[2025-01-15] MEDS: rituximab 1,000 MG in sodium chloride 0.9% 500 ML 70 MG IV (09:25)
[2025-01-15 12:30] VITALS: BP 111/70; PULSE 97; RESP 18; TEMP 35.8; O2SAT 94
== END 2025-01-15 23:59 | disposition home or self-care (01) ==
PROVIDERS: PCP Nurse Practitioner Family; Visit Provider Internal Medicine
DX: M06.9 Rheumatoid arthritis, unspecified (principal); Z79.899 Other long term (current) drug therapy
CPT/HCPCS: 96367; 96413; 96415; J1200; J2919; J7040; J7050; J9312; J9999

== ENCOUNTER 2025-01-29 08:03 | Oncology outpatient (recurring) (ONCR) | payer MEDICAID, SELFPAY ==
[2025-01-29] MEDS: sodium chloride 0.9% 250 ML 25 ML IV (09:08)
[2025-01-29] MEDS: methylPREDNISolone sod succ 125 mg/2 mL INJ IVP (09:08)
[2025-01-29] MEDS: acetaminophen 325 mg Tablet 650 MG PO (09:08)
[2025-01-29] MEDS: diphenhydrAMINE 50 mg/mL SDV 1mL 25 MG IVP (09:14)
[2025-01-29 09:45] VITALS: BP 108/73; PULSE 57; TEMP 36.5; O2SAT 99
[2025-01-29] MEDS: SODIUM CHLORIDE 0.9% IV (09:45)
[2025-01-29] MEDS: RITUXIMAB IV (09:45)
[2025-01-29 10:50] VITALS: BP 112/81; PULSE 77
[2025-01-29 11:25] VITALS: BP 119/74; PULSE 65; RESP 16; TEMP 36.5; O2SAT 95
[2025-01-29 13:56] VITALS: BP 119/72; PULSE 83; TEMP 36.3; O2SAT 97
== END 2025-01-29 23:59 | disposition home or self-care (01) ==
LOC: ONCMED 08:03
PROVIDERS: PCP Nurse Practitioner Family; Visit Provider Internal Medicine
DX: M06.9 Rheumatoid arthritis, unspecified (principal); Z79.899 Other long term (current) drug therapy
CPT/HCPCS: 96375; 96413; 96415; J1200; J2919; J7040; J7050; J9312; J9999

== ENCOUNTER → 2025-06-18 15:09 | Outpatient (BNVA) | payer MEDICAID, SELFPAY | PROVIDERS: PCP Nurse Practitioner Family; Visit Provider Internal Medicine Rheumatology | DX: Z79.899 Other long term (current) drug therapy (principal) | CPT/HCPCS: 36415; 80076; 82565; 85025; 85651; 86140; 86480; 86704; 86803; 87340 ==